=== PATIENT | female | born 1965 | race Caucasian/White ===

== ENCOUNTER 2020-07-13 00:08 | Emergency (ER) | payer OTHER ==
[~2020-07-13] VITALS: Ht 172.7 cm; Wt 68.0 kg
--- NOTE | 2020-07-13 00:20 | NUR ---
Dr. Copeland at bedside for MSE.
--- NOTE | 2020-07-13 00:43 | NUR ---
Xray at bedside.
[2020-07-13 01:01] LABS: BASOPHILS % (AUTO) 0.5 % (0.0-2.0); EOSINOPHILS # (AUTO) 0.5 K/uL (0.0-0.7); EOSINOPHILS % (AUTO) 5.1 % (0.0-7.0); HEMATOCRIT 41.6 % (31.2-41.9); HEMOGLOBIN 13.8 g/dL (10.9-14.3); LYMPHOCYTES # (AUTO) 2.4 K/uL (20.0-40.0); LYMPHOCYTES % (AUTO) 25.5 % (20.5-51.5); MEAN CORPUSCULAR HEMOGLOBIN 29.3 uug (24.7-32.8); MEAN CORPUSCULAR HGB CONC 33 g/dL (32.3-35.6); MEAN CORPUSCULAR VOLUME 88.4 fL (75.5-95.3); MONOCYTES # (AUTO) 0.6 K/uL (2.0-10.0); MONOCYTES % (AUTO) 6.2 % (0.0-11.0); NEUTROPHILS # (AUTO) 5.8 K/uL (1.8-8.9); NEUTROPHILS % (AUTO) 62.7 % (38.5-71.5); PLATELET COUNT (AUTO) 298 K/uL (179-408); RED BLOOD CELL COUNT(AUTO) 4.71 MIL/uL (3.63-4.92); WHITE BLOOD COUNT (AUTO) 9.3 K/uL (3.8-11.8)
[2020-07-13] MEDS ORDERED: TDAP DIPH,PERTUSS,TET VAC/PF 0.5 ML DISP.SYRIN IM ONE ×2 (01:06→01:15)
[2020-07-13 01:07] LABS: CREATININE 0.9 mg/dL (0.6-1.3); POTASSIUM 4.1 mmol/L (3.5-5.1)
[2020-07-13] MEDS ORDERED: SULFAMETH/TRIMETH 800/160 MG TABLET PO ONE (01:15)
[2020-07-13] MEDS ORDERED: SULFAMETH/TRIMETH 800/160 MG TABLET ONE (01:18)
[2020-07-13 01:20] LABS: BILIRUBIN,TOTAL 0.5 mg/dL (0.2-1.0); MAGNESIUM 2.2 mg/dL (1.8-2.4); TOTAL PROTEIN, SERUM 7.1 g/dL (6.4-8.2)
[2020-07-13] MEDS ORDERED: SULF1TAB48 PO (01:25)
[2020-07-13] MEDS ORDERED: OXYC-128 PO (01:25)
[2020-07-13 01:41] VITALS: BP 135/78
--- NOTE | 2020-07-13 01:41 | NUR ---
Patient discharged to home in stable condition. Written and verbal after care instructions given. Patient verbalizes understanding of instructions. Stressed follow up or return to ER for worsening s/s. Patient out of ER with steady gait, no acute signs of distress, VSS, all belongings taken, provided a copy of lab, EKG, and Xray results.
== END 2020-07-13 01:42 | disposition home or self-care (01) ==
LOC: ER 00:11
DX: S61.212A Laceration without foreign body of right middle finger without damage to nail, initial encounter (principal); W45.8XXA Other foreign body or object entering through skin, initial encounter; Y92.89 Other specified places as the place of occurrence of the external cause; I27.21 Secondary pulmonary arterial hypertension; R60.0 Localized edema; R94.31 Abnormal electrocardiogram [ECG] [EKG]
CPT/HCPCS: 36415; 71045; 83735; 85025; 90715; A4217; A4663